=== PATIENT | male | born 1950 | race Asian ===

== ENCOUNTER 2018-06-05 14:31 | Day surgery (SDC) | payer OTHER ==
[2018-06-05] MEDS ORDERED: LIDOCAINE HCL 1%, 10 MG/ML (20ML VIAL) NR ONE (15:31)
[2018-06-05] MEDS ORDERED: LIDOCAINE HCL 1%, 10 MG/ML (20ML VIAL) ONE (15:34)
[2018-06-05 16:27] LABS: BASO % 0.6 % (0-2.0); EOS % 0.6 % (0-4.5); HEMATOCRIT 44.8 % (35.4-49); HEMOGLOBIN 15.6 GM/dL (11.7-16.9); LYMPH % 17.8 % (8-40); MCH 32.2 pg (25.7-33.7); MCHC 34.8 g/dl (32.0-35.9); MEAN CELL VOLUME 92.5 fl (80-96); MEAN PLT VOLUME 8.1 fl (7.5-11.1); MONO % 3.9 % (3.8-10.2); NEUT % 77.1 % (42.8-82.8); PLATELET COUNT 171 K/MM3 (134-434); RBC 4.84 M/mm3 (4.00-5.60); RDW 13.7 % (11.9-15.9)
[2018-06-05 16:47] LABS: INR 1.82 (0.83-1.09); PROTHROMBIN TIME (PATIENT) 21.6 SEC (9.7-13.0)
[2018-06-05 16:50] LABS: ACTIVATED PTT 40.4 SECONDS (25.2-36.5)
[2018-06-05 17:55] VITALS: BP 105/72; PULSE 83; TEMP 98.1
--- NOTE | 2018-06-05 18:16 | PN ---
Progress Note (short form) - Note Progress Note: Patient was here for bone marrow biopsy at [facility]. We have advised him to go back to work on 06/07/18
--- NOTE | 2018-06-05 18:18 | PROC ---
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
--- NOTE | 2018-06-05 18:19 | HP ---
Satellite [facility] - Chief Complaint Chief Complaint: Here for elective bone marrow biopsy History Source: Patient Limitations to Obtaining History: No Limitations - Past Medical History Allergies/Adverse Reactions: Allergies Allergy/AdvReac Type Severity Reaction Status Date / Time aspirin Allergy Severe Difficulty Verified 06/05/18 15:30 Breathing Satellite Physical Exam - Physical Examination Vital Signs: Vital Signs Period Temp Pulse Resp BP Sys/Posada Pulse Ox Last 24 Hr 98.1 F-98.2 F 75-83 18-20 105-120/72-75 General Appearance: Alert & Oriented x3 Lung: Clear to auscultation Heart: Regular rate & rhythm, Normal S1, Normal S2 Abdomen: Soft, No tenderness Extremities: No edema Neurological: Intact Satellite Impression/Plan - Impression/Plan Impression: 67 y/o patient gout, on allopurinol. Had mild leukopenia, peripheral blood showed 7q- deletion. FOr bmbx to r/o MDS
--- NOTE | 2018-06-12 17:42 | PATH ---
Surgical Pathology Report Patient Name: ELENA CACERESACIAS [facility]. Rec. #: [id number] /Age/Gender: 1950 (Age: 67) / M Account: [id number] Location: AMBULATORY SURG Taken: 06/05/2018 Received: 06/05/2018 Reported: 06/12/2018 Physicians: Mercedes Dumont M.D. Specimen(s) Received A: BONE MARROW BLOOD B: BONE MARROW BIOPSY C: BONE MARROW CLOT D: BONE MARROW ASPIRATION SMEARS 12 SLIDES Clinical History Leukopenia Final Diagnosis A-D. 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 NO INCREASE OF MYELOBLASTS. NO EVIDENCE OF OVERT DYSPLASIA. SEE COMMENT. Comment: The etiology of the hypocellularity of the bone marrow cannot be determined based on the current biopsy; sampling bias (hypocellular subcortical areas) is a possibility. Concurrent (06/05/2018) CBC is unremarkable (no evidence of cytopenias). Correlation with relevant clinical, imaging, and laboratory data is essential. FISH studies, performed on the current sample ([id number]), did not detect chromosomal aberrations in the loci tested. This case was sent to Dr. Luiz Don from [place], [place] ([id number]) the diagnosis above reflects his opinion. Morphology Aspirate Smear: Cellularity: Aspicular, hemodilute. Myeloid Precursors: Complete granulocytic maturation to segmented neutrophils without significant left shift or dysplasia. No increase of myeloblasts. Erythroid Precursors: With mild NC asynchrony and focal dyspoiesis. Megakaryocytes: Rare Lymphoid Cells: Not increased Plasma Cells: Not increased Iron: .Inadequate spicules for assessment of storage and sideroblastic iron. Core Biopsy/Clot Hypocellular (5-10% overall) bone marrow with adequately maturing myeloid elements. The M:E ratio is within normal limits. Immature blast-like cells do not appear increased. No significant lymphoid or plasma cell infiltrates are present. Megakaryocytes are rare. The bony trabeculae are unremarkable. The clot section is noncontributory. Reticulin: .Not increased. Iron: .Not seen. Immunostains performed on the core biopsy: CD20..B-cells positive (not increased) CD3..T-cells positive CD34..Immature cells positive (not increased) CD117..Immature and mast cells positive Myeloperoxidase...Granulocytes positive CD71...Erythroid precursors positive CD61..Megakaryocytes positive CD138..Plasma cells positive (not increased). AE1/AE3..Negative. COMPREHENSIVE FLOW PANEL performed at [facility] laboratory shows no evidence for abnormal myeloid maturation or an increased blast population. There is no evidence for a lymphoproliferative disorder ([id number]). MYELODYSPLASIA FISH PANEL performed and interpreted at [place], [place] ([id number]) shows the following: INTERPRETATION: No evidence of deletion 5q or monosomy 5 is present. No evidence of deletion 7q or monosomy 7 is present. No evidence of trisomy 8 (+8) is present. No evidence of deletion 13q14.2 is present. No evidence of rearrangement of 11q23. No evidence of a deletion of the p53 (17p13) locus. No evidence of deletion 20q12 is present Comment: The 7q probe tested at 3.5%, below the established cutoff value. CYTOGENETIC KARYOTYPE ANALYSIS performed and interpreted at [facility] ([id number]) shows the following: RESULTS: 46, XY [20] INTERPRETATION: Normal Karyotype See [facility] reports ([id number], [id number], [id number], and [id number]) for additional details. Electronically Signed Gilda Rodriguez M.D. Gross Description A. Received are 2 green top tubes and 1 lavender top tube of bone marrow blood which are sent to [facility]. B. Received in formalin, labeled with the patient's name and indicated on the requisition to be a bone marrow biopsy, is a 1.0 cm in length x 0.1 cm in diameter mckoy, cylindrical portion of bone with attached blood clot. The specimen is submitted in toto in one cassette, following decalcification. C. Received in formalin, labeled with the patient's name and indicated on the requisition to be a bone marrow clot, is a 1.5 x 1.0 x 0.3 cm portion of red-brown blood clot. The specimen is submitted in toto in one cassette. D. Received are 12 bone marrow aspiration smear slides. 06/06/20185/2019
== END 2018-06-05 18:32 | disposition home or self-care (01) ==
LOC: JASUSAT 14:31 → J7W 14:33 → JASUSAT 18:32
PROVIDERS: ATTEND Internal Medicine Hematology & Oncology
PROC: 07DR3ZX Extraction of Iliac Bone Marrow, Percutaneous Approach, Diagnostic (ICD-10-PCS; principal; 2018-06-05)
DX: D72.818 Other decreased white blood cell count (principal)
CPT/HCPCS: 36415; 85025; 85610; 85730; 86850; 86900; 86901; 88300-TC; 88305-TC; 88311-TC; 88313-TC